=== PATIENT | female | born 1985 | race Asian ===

== ENCOUNTER 2017-11-07 20:58 | Emergency (ER) | payer OTHER ==
[~2017-11-07] VITALS: Ht 154.9 cm; Wt 67.7 kg
[2017-11-07 21:07] VITALS: BP 165/111
[2017-11-07 21:38] LABS: Basophils # (auto) 0 uL; Basophils % (auto) 0.2 % (0.0-2.0); Eosinophils # (auto) 0.2 uL; Eosinophils % (auto) 2.5 % (0.0-7.0); Hematocrit 41.5 % (36.0-46.0); Hemoglobin 13.8 g/dL (12.2-16.2); Lymphocytes # (auto) 3.1 uL; Lymphocytes % (auto) 41.7 % (10.0-50.0); Mean Corpuscular Hemoglobin 33.1 pg (28.0-32.0); Mean Corpuscular Hgb Conc. 33.3 g/dL (32.0-36.0); Mean Corpuscular Volume 99.5 fL (80.0-100.0); Monocytes # (auto) 0.6 uL; Monocytes % (auto) 7.6 % (0.0-12.0); Neutrophils # (auto) 3.6 uL; Nucleated Red Blood Cells % 0.1 %; Platelet Count (auto) 395 10^3/uL (140-450); Red Blood Cells 4.17 10^6/uL (4.0-5.20); Red Cell Distribution Width 13.8 % (11.8-14.3); White Blood Cell 7.4 10^3/uL (4.4-10.8)
[2017-11-07 22:01] LABS: BUN/Creatinine Ratio 14.1; Bilirubin, Total 0.2 mg/dL (0.2-1.0); INR 0.95 (0.9-1.15); Partial Thromboplastin Time 26.6 sec (22.64-33.71); Potassium 4.1 mmol/L (3.5-5.1); Prothrombin Time 10.3 sec (9.37-12.3); Total Protein 8.3 g/dL (6.4-8.2)
== END 2017-11-08 04:04 | disposition left against medical advice (07) ==
LOC: ER 20:58
DX: R07.89 Other chest pain (principal); R11.2 Nausea with vomiting, unspecified; Z53.21 Procedure and treatment not carried out due to patient leaving prior to being seen by health care provider
CPT/HCPCS: 36415; 71046; 80053; 84484; 85025; 85610; 85730; 93005